=== PATIENT | female | born 1985 | race Caucasian/White ===

== ENCOUNTER 2019-07-03 18:12 | Observation (INO) | payer OTHER ==
[~2019-07-03] VITALS: Ht 160 cm; Wt 148.1 kg
[2019-07-03] MEDS ORDERED: COZAAR25 MG PO (18:31)
[2019-07-03] MEDS ORDERED: WELLBUTRIN SR100 MG PO (18:31)
[2019-07-03] MEDS ORDERED: METFORMIN HCL500 MG PO (18:31)
--- NOTE | 2019-07-04 07:18 | CONS ---
[facility] [address] [place], [place] [address] Signed DATE OF CONSULTATION: 07/04/2019 CHIEF COMPLAINT: Right upper quadrant abdominal pain. HISTORY OF PRESENT ILLNESS: Carli is a 33-year-old obese female, who is the mother of 5 children. She developed epigastric right upper quadrant abdominal pain yesterday associated with nausea. She came to the emergency room for evaluation. In the emergency room, she was tender in the upper abdomen with a normal white count and elevated liver function tests. She has had a tubal ligation and her beta hCG is negative. Ultrasound was performed and she does have mobile stones in the gallbladder. Fortunately, the gallbladder wall does not appear to be thickened and the common bile duct is unremarkable. However, due to her obesity, the quality of the ultrasound is a bit reduced. I have been asked to admit her as a general surgeon on-call. She has been hydrated and received Rocephin and Flagyl overnight along with some Zofran and Phenergan. Overall, she said she is about the same. PAST MEDICAL HISTORY: Type 2 diabetes, hypertension, vitamin D deficiency, and obesity. PAST SURGICAL HISTORY: Bilateral tubal ligation. SOCIAL HISTORY: She does not smoke or drink. She is to [place] at [phone]. They have 5 children, all born vaginally. 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 Her primary care provider is Roma Gottlieb. They prefers the [facility]. FAMILY HISTORY: Mom had diabetes with chronic renal failure. Dad has diabetes with congestive heart failure. REVIEW OF SYSTEMS: She had 10 systems reviewed and there were no new findings. ALLERGIES: Codeine. MEDICATIONS: 1. Metformin 500 mg p.o. daily. 2. Wellbutrin 100 mg p.o. daily. 3. Losartan 25 mg p.o. daily. Electronically Signed By: DOMINIC DALEY MD 07/04/19 0718 PATIENT NAME: CARLI SCHWAB CONSULTATION DATE OF : 83 REPORT #: [id number] PHYSICIAN: DOMINIC DALEY MD PCP: ROMA GOTTLIEB PA-C REPORT IS CONFIDENTIAL AND NOT TO BE RELEASED WITHOUT AUTHORIZATION [facility] [address] [place], [place] [address] Signed PHYSICAL EXAMINATION: VITAL SIGNS: Her blood pressure is 136/74, heart rate is 93, respiratory rate 18, and temperature 97.9. She is 100% on room air. She is 5 feet 3 inches and 148 kg (323 pounds). GENERAL: Carli is a 33-year-old female, who generally appears her stated age. She is lying supine in her hospital bed. She is not jaundiced. She does not appear systemically ill or toxic. LUNGS: Clear to auscultation bilaterally. HEART: Regular rate and rhythm. ABDOMEN: Obese, but soft. She seems to have tenderness in the epigastric region. LABORATORY DATA: Her white blood cell count is 6.2, neutrophils 59, and hemoglobin 13. BUN is 8 and creatinine is 0.64. Her sugar is 153, total bilirubin 1.5, AST 250, ALT 239, alkaline phosphatase 76, albumin is 3.9, and lipase 59. Beta-hCG negative. RADIOGRAPHIC STUDIES: The ultrasound report is reviewed and she has mobile stones, but the gallbladder wall is not thickened. Common bile duct seems unremarkable. Her liver seems to have fat. ASSESSMENT AND PLAN: Carli is a 33-year-old obese female, who presents with symptomatic cholelithiasis and probably early cholecystitis. She also has fatty liver. I reviewed all the above findings with Carli. She understands the location and function of the gallbladder. We have discussed laparoscopic versus open cholecystectomy. She understands expected intraop and postop risk. We also discovered she has an umbilical hernia on physical exam. She said that came after the tubal ligation. We can certainly use that access point for the camera and we will close that primarily when we are done. She understands there is risk including, but not limited to bleeding, infection, scarring, change in contour of the skin, damage to bowel, damage to the main bile duct, incisional hernias, and other unforeseen comorbidities. She has expressed understanding and would like to proceed. We will add her on to our schedule this morning. Dominic Daley MD ALB/MODL /[id number] Electronically Signed By: DOMINIC DALEY MD 07/04/19 0718 PATIENT NAME: CARLI SCHWAB CONSULTATION DATE OF : 83 REPORT #: [id number] PHYSICIAN: DOMINIC DALEY MD PCP: ROMA GOTTLIEB PA-C REPORT IS CONFIDENTIAL AND NOT TO BE RELEASED WITHOUT AUTHORIZATION [address] [address] Signed cc: JESSICA Daniels MD Copies: ROMA GOTTLIEB PA-C, ANDREW L MD ~ Electronically Signed By: DOMINIC DALEY MD 07/04/19 0718 PATIENT NAME: JOSSELINCARLIHER ZAYAS CONSULTATION DATE OF : 83 REPORT #: [id number] PHYSICIAN: DOMINIC DALEY MD PCP: ROMA GOTTLIEB PA-C REPORT IS CONFIDENTIAL AND NOT TO BE RELEASED WITHOUT AUTHORIZATION
--- NOTE | 2019-07-05 07:34 | OR ---
[facility] [address] [place], [place] [address] Signed DATE OF OPERATION: 07/04/2019 SURGEON: Dominic Daley MD PREOPERATIVE DIAGNOSES: 1. Acute cholecystitis and cholelithiasis. 2. Incarcerated umbilical hernia (3 cm). 3. Fatty liver. POSTOPERATIVE DIAGNOSES: 1. Acute cholecystitis with choledocholithiasis (3-4 mm). 2. Incarcerated umbilical hernia (3 cm). 3. Fatty liver. PROCEDURES: 1. Laparoscopic cholecystectomy with intraoperative cholangiogram (prolonged and difficult at 2 hours). 2. Needle liver biopsy. 3. Primary umbilical herniorrhaphy. ESTIMATED BLOOD LOSS: None. FINDINGS: Carli had omentum incarcerated through her umbilical fascial defect, the size of a softball. It had to be divided between Pean clamps and passed off the field in order to reduce the proximal portion of that omentum. We did close that fascial defect later with interrupted [id number] #1 Prolene sutures. She also has significant fatty liver and we took a simple needle biopsy of the right lobe of the liver. In addition, because of her body mass index, we have an additional nurse scrub in. We had introduced the fan retractor through the midline in order to access the neck of the gallbladder in the triangle of Calot. The entire procedure took 2 hours, which is over an hour longer than usual. Consequently, it was prolonged and difficult. INDICATIONS: Carli is a 33-year-old female at 5 feet 3 inches, 323 pounds. She is 148 kg. She has had 5 children, all born vaginally. Yesterday, she was having right upper quadrant and epigastric abdominal pain with significant nausea. She finally came to the emergency room for evaluation. She was not jaundice, but she seemed to be tender in the epigastric area as well as the right upper quadrant. She also had a large incarcerated Electronically Signed By: DOMINIC DALEY MD 07/05/19 0734 PATIENT NAME: CARLI SCHWAB OPERATIVE REPORT DATE OF : 83 REPORT #: [id number] PHYSICIAN: DOMINIC DALEY MD PCP: LARISSA GARCIAS PA-C REPORT IS CONFIDENTIAL AND NOT TO BE RELEASED WITHOUT AUTHORIZATION [facility] [address] [place], [place] [address] Signed umbilical hernia. White count was normal along with the basic metabolic panel. However, the total bilirubin was up to 1.5, AST 250, ALT 239, alkaline phosphatase 76, albumin was 3.9, lipase 59, and beta-hCG was negative. She had an ultrasound performed and it appeared like there were several mobile stones in her gallbladder. The gallbladder wall and the common bile duct did not seem to be particular concerning. Consequently, I was asked to admit her in the middle of night as a general surgeon on-call. She received IV fluids, pain control and Rocephin and Flagyl. In the morning, I met with Carli and we went over this in detail. We also discussed the location and function of the gallbladder. We had discussed laparoscopic versus open cholecystectomy. She understands expected intraop and postop course. There is risk to gallbladder surgery including, but not limited to bleeding, infection, scarring, change in contour of the skin, damage to bowel, damage to main bile duct, incisional hernias and other unforeseen comorbidities. In addition, we talked about her umbilical hernia. They went through that area for the tubal ligation. She has an incarcerated omentum in that area. I reviewed with her the difference between the primary suture repair and a mesh repair of an umbilical hernia. Without mesh, her chance of recurrent hernia runs anywhere from 3% up to 15% even higher given her obesity. Also because of her obesity and the liver function tests, we decided we would more than likely perform a needle biopsy at the time of the surgery if we indeed found evidence of fatty liver as was concerning on the ultrasound. risk to that mainly bleeding. She had expressed understanding and wished to proceed. PROCEDURE NOTE: Carli was taken in the operating room and placed in the supine position under general endotracheal tube anesthesia. She was already on preoperative antibiotics along with subcutaneous heparin. SCDs were in place. She was prepped and draped in the usual sterile fashion. We used her previous infraumbilical curvilinear incision. We opened that sharply with a knife, went down and around the umbilical hernia bluntly and with the cautery. We the hernia sac from the fascial defect. The omentum could not be reduced so we had divided between Pean clamps and 0-Vicryl ties at the level of the umbilicus. That allowed us to reduce the proximal portion of the omentum, however, the distal portion of the omentum was passed off the field. It was at least the size of a softball. We then discovered at least a 3 cm fascial defect. We used a #1 purse-string Prolene suture. We placed our Jason trocar into the defect and we tied that suture down tightly. We added an additional 0-Vicryl suture on the opposite side in order to help us hold the trocar down in place. The abdomen was then insufflated and we placed our two right subcostal and subxiphoid trocar sites under direct visualization. We could immediately see rather significant fatty liver. Her liver was somewhat firm and we were not able to elevate the liver to any significant degree. Consequently, we had to have an additional nurse scrub in and we introduced the fan retractor through the epigastric midline in order to hold the transverse colon and omentum down and out of the way. This then gave us access to her triangle of Calot. It Electronically Signed By: DOMINIC DALEY MD 07/05/19 0734 PATIENT NAME: CARLI SCHWAB OPERATIVE REPORT DATE OF : 83 REPORT #: [id number] PHYSICIAN: DOMINIC DALEY MD PCP: LARISSA GARCIAS PA-C REPORT IS CONFIDENTIAL AND NOT TO BE RELEASED WITHOUT AUTHORIZATION [facility] [address] [place], [place] [address] Signed was carefully dissected free and we placed several clips on the cystic artery and it was divided. We then introduced the intraoperative cholangiocatheter into the cystic duct. The intraoperative cholangiogram was then performed. It looks like she may have a 3 or 4 mm mobile filling defects right at the ampulla of Vater. Hopefully that will pass in due time, but has to be kept in mind. The rest of the common bile duct and the intrahepatic ducts looked unremarkable. We then secured the cystic duct stump with a PDS Endoloop and two clips were placed to mitesh its location. We then slowly and carefully removed the gallbladder from the gallbladder fossa with the help of cautery and placed into an EndoCatch bag. We then passed our needle into the abdomen and took a single core of the right lobe of the liver for pathologic review due to the fatty liver. Hemostasis was achieved with the cautery. The right upper quadrant was irrigated and suctioned out until clear. We then used our laparoscopic suturing device to pass 0-Vicryl suture on the subxiphoid and the mid epigastric trocar sites. These were tied down to close the fascia primarily. All the gas was allowed to escape and all the remaining trocars were removed. The gallbladder was passed off the field. It was opened on the back table for photodocumentation. It appeared there was just a single stone in the gallbladder and maybe one in the distal common bile duct. After this, we used interrupted #1 [id number] Prolene sutures x3 to close the umbilical fascial defect primarily. Local anesthetic was injected into all trocar sites. Each trocar site was irrigated and suctioned out until clear. We brought the umbilical skin back down to the midline fascia with an interrupted 2-0 PDS suture. The dermis of each trocar site was closed with interrupted 3-0 subcuticular Monocryl sutures. The skin edges of the infraumbilical incision closed with a running 5-0 fast absorbing plain gut suture. Dry gauze and tape were then applied to all incisions. Carli was then awakened from her anesthesia, extubated in the OR, and taken to recovery room in stable condition. Dominic Daley MD ALB/MODL /[id number] cc: JESSICA Daniels MD Electronically Signed By: DOMINIC DALEY MD 07/05/19 0734 PATIENT NAME: CARLI SCHWAB OPERATIVE REPORT DATE OF : 83 REPORT #: [id number] PHYSICIAN: DOMINIC DALEY MD PCP: LARISSA GARCIAS PA-C REPORT IS CONFIDENTIAL AND NOT TO BE RELEASED WITHOUT AUTHORIZATION [address] [place] [address] Signed Copies: LARISSA GARCIAS PA-C, ANDREW L MD ~ Electronically Signed By: DOMINIC DALEY MD 07/05/19 0734 PATIENT NAME: CARLI SCHWAB OPERATIVE REPORT DATE OF : 83 REPORT #: [id number] PHYSICIAN: DOMINIC DALEY MD PCP: LARISSA GARCIAS PA-C REPORT IS CONFIDENTIAL AND NOT TO BE RELEASED WITHOUT AUTHORIZATION
[2019-07-05] MEDS ORDERED: BUPROPION HCL150 M2 PO (08:59)
[2019-07-05] MEDS ORDERED: LOSARTAN POTASS50 MG PO (09:00)
[2019-07-05] MEDS ORDERED: VITAMIN D21250 MCG PO (09:01)
[2019-07-05] MEDS ORDERED: NORCO 5-325 TA1 EACH PO (09:45)
[2019-07-05] MEDS ORDERED: DOXYCYCLINE HY100 MG PO (09:46)
[2019-07-05] MEDS ORDERED: IBUPROFEN600 MG PO (09:47)
--- NOTE | 2019-07-05 10:04 | DS ---
[facility] [address] [place], [place] [address] Signed ADMISSION DATE: 07/03/2019 DISCHARGE DATE: 07/05/2019 FINAL DIAGNOSES: 1. Acute cholecystitis with choledocholithiasis. 2. Umbilical hernia. 3. Fatty liver. PROCEDURES: 1. Laparoscopic cholecystectomy with intraoperative cholangiogram. 2. Primary umbilical herniorrhaphy. 3. Needle liver biopsy. HISTORY OF PRESENT ILLNESS: Carli is a 33-year-old obese female at 5 foot 3 inches, 323 pounds. Consequently, she is 148 kg. She was having trouble with right upper quadrant abdominal pain and nausea for a day. She came to emergency room for evaluation. She was not jaundiced and was generally not systemically ill or toxic. She clearly had an incarcerated umbilical hernia on physical exam. She has had a prior tubal ligation with the camera placed through this area. White count was normal. Total bilirubin was up a little at 1.5 with elevated AST at 250, ALT 239, alkaline phosphatase 76 with a lipase of 59, albumin good at 3.9, and her beta-hCG was negative. She was admitted as above and started on Rocephin and Flagyl overnight. HOSPITAL COURSE: I met with Carli in the morning and we reviewed the above findings in detail. We discussed the location. We had taken her to the operating room later that morning for her laparoscopic cholecystectomy with intraoperative cholangiogram. She has a small filling defect in the distal common bile duct. Probably 3 or 4 mm in diameter. Consequently, it may pass on its own. We did get contrast to go around and into the duodenum. In addition, the following morning, her total bilirubin had come down to 0.8. Liver function tests were also improving. Lipase also down at 30. With hydration, she also had a decrease in her hemoglobin down to 11.5, so she is mildly anemic. Her urine culture came back with strep, so we are going to start her on doxycycline 100 mg p.o. b.i.d. for five days. In addition, she had a rather large umbilical hernia. The amount of omentum we resected was the size of a softball. Consequently, the umbilical skin was quite thin. This morning it is quite dusky and I suspect she is going to lose some of that skin at least from the 3 o'clock to the 9 o'clock position. However, we could certainly open that or debride that in the office and we will pack that. If that occurs, and that will heal in secondarily anywhere from four weeks to eight weeks. Otherwise the other incisions are healing quite nicely. Electronically Signed By: DOMINIC DALEY MD 07/05/19 1004 PATIENT NAME: CARLI SCHWAB DISCHARGE SUMMARY DATE OF : 83 REPORT #: [id number] PHYSICIAN: DOMINIC DALEY MD PCP: ROMA GARCIAS PA-C REPORT IS CONFIDENTIAL AND NOT TO BE RELEASED WITHOUT AUTHORIZATION [facility] [address] [place] [address] Signed DISCHARGE PLANS AND MEDICATIONS: I reviewed all this with Carli in detail this morning. Including the umbilicus and the small stone in the distal common bile duct. She told me she is from [place] and is very familiar with [place]. She is in need of an endoscopic ultrasound and possible ERCP. Consequently, we will send a consult down to the [facility] with Fer and we will look forward to their input. We are going to be sending her home today with the doxycycline 100 mg p.o. b.i.d. for five days for the urinary tract infection. We will give her some hydrocodone for her postoperative pain. She can shower and bathe as usual. She will leave the incisions open to air. She should not lift over 25 pounds for a month, 50 pounds 2nd month and after that no restrictions. I will have her back in my office in about 5-7 days for followup. She has expressed understanding and agrees above plan. Dominic Daley MD ALB/MODL /[id number] cc: MD Roma Koenig PA-C Copies: DOMINIC DALEY MD, CHLOE K PA-C ~ Electronically Signed By: DOMINIC DALEY MD 07/05/19 1004 PATIENT NAME: CARLI SCHWAB DISCHARGE SUMMARY DATE OF : 83 REPORT #: [id number] PHYSICIAN: DOMINIC DALEY MD PCP: ROMA GARCIAS PA-C REPORT IS CONFIDENTIAL AND NOT TO BE RELEASED WITHOUT AUTHORIZATION
--- NOTE | 2019-07-09 17:39 | PATH ---
[facility] [address] [place], [place] [address] Signed SPECIMEN(S): A UMBILICAL HERNIA SAC OMENTUM SPECIMEN(S): B FATTY LIVER SPECIMEN(S): C GALLBLADDER SPECIMEN SOURCE: A. UMBILICAL HERNIA SAC OMENTUM B. FATTY LIVER C. GALLBLADDER CLINICAL HISTORY: A) Umbilical hernia sac and omentum. B) Liver biopsy of fatty liver. C) Acute cholecystitis. FINAL PATHOLOGIC DIAGNOSIS: A. Umbilical hernia sac and omentum, excision: - Mesothelial-line fibrovascular connective tissue, consistent with hernia sac. - Mature fibroadipose tissue, consistent with omentum. B. Liver, biopsy: - Mildly active steatohepatitis with pericellular fibrosis. - See Comment. C. Gallbladder, cholecystectomy: - Chronic cholecystitis with cholesterolosis. - Cholelithiasis. COMMENT: Sections of the liver biopsy demonstrate macrovesicular steatosis (75%, predominantly large droplet), portal mixed inflammation with lymphocytes and neutrophils, and mild interface change. Lobular inflammation and rare Shari's hyaline is seen. The bile ducts are normal in number and show reactive changes. Pericellular fibrosis is seen with trichrome and reticulin stains, suggesting a chronic inflammatory component. There is no evidence of jyjvi-7-xjqbbtfulds deficiency on PAS-D stain. There is no abnormal iron accumulation with iron stain. The small sample size and lack of portal tracts prevents further evaluation. The differential diagnosis includes non-alocholic steatohepatitis (VERMA) and alcohol-induced steatohepatitis. Correlation with clinical findings is necessary. As part of [employer] Quality Improvement Program, this case was reviewed by another member of our pathology staff. PATIENT NAME: MITCHELL SCHWAB PATHOLOGY DATE OF : 83 REPORT #: [id number] PHYSICIAN: RAUL PLATA PCP: LARISSA GARCIAS PA-C REPORT IS CONFIDENTIAL AND NOT TO BE RELEASED WITHOUT AUTHORIZATION [facility] [address] [place], [place] [address] Signed NAL:[id number] MICROSCOPIC EXAMINATION: Histologic sections of all submitted blocks are examined by light microscopy. Special stains (with appropriately staining controls) for PAS/D, trichrome, reticulin, and iron were performed to evaluate the liver biopsy. These findings, together with the gross examination, support the pathologic diagnosis. GROSS DESCRIPTION: Three specimens are received in three containers, labeled "HL." A. The specimen, labeled "HL," and designated on the requisition "abdominal hernia sac and omentum," is received in formalin and consists of fibromembranous, pink-red, congested tissue with attached yellow-velazquez, lobulated fibroadipose tissue. The specimen measures 11.2 x 8.9 x 4.7 cm. Sectioning through the specimen is unremarkable. Photovoltaic Solar Cell [employer]er sections are submitted in cassettes (A1-A2). B. The specimen, labeled "HL," and designated on the requisition "liver biopsy of fatty liver," is received in formalin and consists of two pink-velazquez needle core tissue fragments that range in size from 0.5 to 0.7 cm in length and up to 0.1 cm in diameter. Specimen is inked black. Specimen is entirely submitted in cassette (B1). C. The specimen, labeled "HL, gallbladder," is received in formalin and consists of: Specimen: Previously opened gallbladder. Dimensions: 7.0 cm in length and 4.2 cm in inner diameter. Serosa: Violaceous and smooth. Cystic Duct: Obstructed with two black gallstones that measure 0.6 and 0.5 cm in greatest dimension. Calculi: The previously described gallstones are the only gallstones within the container and within the gallbladder. Mucosa: Green and velvety with yellow flecking. Wall thickness: 0.4 cm. Lymph node: No pericystic lymph nodes are grossly identified. Additional: None. Photovolta[employer] Solar Cell Designer sections are submitted in cassette (A1). JS (under the direct supervision of a pathologist) The Gross Description was prepared using a voice recognition system. The report was reviewed for accuracy; however, sound-alike word errors, addition and/or deletions may occur. If there is any question about this report, please contact Client Services. PATIENT NAME: MITCHELL SCHWAB PATHOLOGY DATE OF : 83 REPORT #: [id number] PHYSICIAN: RALU PLATA PCP: LARISSA GARCIAS PA-C REPORT IS CONFIDENTIAL AND NOT TO BE RELEASED WITHOUT AUTHORIZATION [facility] [address] [place] [address] Signed PERFORMING LABORATORY: The technical component was performed by [facility] [employer] [facility], [address] [place] [address] (Radiology Scheduler: Tamy Alex MD; CLIA# [id number]). Professional interpretation was performed by [facility] [facility], [facility], [address] [address] (IA# [id number]). Diagnostician: Katiana Fisher MD Pathologist Electronically Signed 07/09/2019 Copies: ~ PATIENT NAME: MITCHELL SCHWAB PATHOLOGY DATE OF : 83 REPORT #: [id number] PHYSICIAN: RAUL PATHOLOGY PCP: LARISSA GARCIAS PA-C REPORT IS CONFIDENTIAL AND NOT TO BE RELEASED WITHOUT AUTHORIZATION
== END 2019-07-05 10:25 | disposition home or self-care (01) ==
LOC: ED 18:12 → MS 18:15 → ED 20:37 → MS 07-05 10:25
PROVIDERS: ADMIT Colon & Rectal Surgery
PROC: 0FT44ZZ Resection of Gallbladder, Percutaneous Endoscopic Approach (ICD-10-PCS; principal; 2019-07-03)
PROC: BF13YZZ Fluoroscopy of Gallbladder and Bile Ducts using Other Contrast (ICD-10-PCS; 2019-07-03)
PROC: 0FB03ZX Excision of Liver, Percutaneous Approach, Diagnostic (ICD-10-PCS; 2019-07-03)
DX: K80.66 Calculus of gallbladder and bile duct with acute and chronic cholecystitis without obstruction (principal); K42.0 Umbilical hernia with obstruction, without gangrene; K76.0 Fatty (change of) liver, not elsewhere classified; K74.0 Hepatic fibrosis; E11.9 Type 2 diabetes mellitus without complications; I10 Essential (primary) hypertension; E55.9 Vitamin D deficiency, unspecified; E66.9 Obesity, unspecified; Z79.84 Long term (current) use of oral hypoglycemic drugs; Z79.899 Other long term (current) drug therapy; Z88.5 Allergy status to narcotic agent; Z68.43 Body mass index [BMI] 50.0-59.9, adult
CPT/HCPCS: 00790; 36415; 74300; 76705; 80053; 81001; 83690; 84703; 85025; 87088; 87147; 88304; 88307; 88313; 96361; 96372; 96374; 96375; 96376; 99285-25; G0378; J0696; J1100; J1170; J1650; J1885; J2270; J2405; J2550; J2704; J3010; J7030; Q9967

== ENCOUNTER 2019-08-02 00:18 | Emergency (ER) | payer OTHER ==
[~2019-08-02] VITALS: Ht 160 cm; Wt 148.1 kg
[~2019-08-02 00:18] MED LIST: BUPROPION HCL150 M2 PO; COZAAR25 MG PO; DOXYCYCLINE HY100 MG PO; IBUPROFEN600 MG PO; LOSARTAN POTASS50 MG PO; METFORMIN HCL500 MG PO; NORCO 5-325 TA1 EACH PO; VITAMIN D21250 MCG PO; WELLBUTRIN SR100 MG PO
--- OUTSIDE RECORDS SUMMARY | 2019-08-02 00:20 | XMS ---
PreManage Notification: MITCHELL SCHWAB Security Calculation Clerk Events No recent Security Events currently on file CRITERIA MET - [facility] - 2 Visits in 30 Days CARE PROVIDERS There are no care providers on record at this time. Deepak has no Care Guidelines for this patient. [facility] MO.) [facility] NOTE: Visits indicate total known visits. [facility] [place] (12 MO.) 08/02/2019 00:19 [facility] 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
== END 2019-08-02 01:17 | disposition home or self-care (01) ==
LOC: ED 00:18
DX: K91.872 Postprocedural seroma of a digestive system organ or structure following a digestive system procedure (principal); E11.9 Type 2 diabetes mellitus without complications; I10 Essential (primary) hypertension; Z87.891 Personal history of nicotine dependence; Z88.5 Allergy status to narcotic agent; Z79.899 Other long term (current) drug therapy
CPT/HCPCS: 99283

== ENCOUNTER 2019-10-05 17:29 | Emergency (ER) | payer OTHER ==
[~2019-10-05] VITALS: Ht 160 cm; Wt 145.2 kg
[2019-10-05] MEDS ORDERED: PERCOCET 5-3251 EACH PO (18:45)
[2019-10-05] MEDS ORDERED: CANE1 EACH MISC (18:45)
== END 2019-10-05 18:56 | disposition home or self-care (01) ==
LOC: ED 17:29
DX: S93.05XA Dislocation of left ankle joint, initial encounter (principal); I10 Essential (primary) hypertension; E11.9 Type 2 diabetes mellitus without complications; Z88.5 Allergy status to narcotic agent; Z79.899 Other long term (current) drug therapy; Z79.84 Long term (current) use of oral hypoglycemic drugs; X58.XXXA Exposure to other specified factors, initial encounter
CPT/HCPCS: 73610; 99283-25

== ENCOUNTER 2020-11-04 07:33 | Emergency (ER) | payer OTHER ==
[~2020-11-04] VITALS: Ht 160 cm; Wt 145.2 kg
[~2020-11-04 07:33] MED LIST changes: +CANE1 EACH MISC; +PERCOCET 5-3251 EACH PO
[2020-11-04] MEDS ORDERED: PERCOCET 5-3251 EACH PO (10:30)
[2020-11-04] MEDS ORDERED: LIDODERM1 EACH TOP (10:30)
[2020-11-04] MEDS ORDERED: PREDNISONE20 MG PO (10:35)
== END 2020-11-04 10:50 | disposition home or self-care (01) ==
LOC: ED 07:33
DX: M54.9 Dorsalgia, unspecified (principal); E11.9 Type 2 diabetes mellitus without complications; I10 Essential (primary) hypertension; Z87.891 Personal history of nicotine dependence; Z88.5 Allergy status to narcotic agent; Z79.84 Long term (current) use of oral hypoglycemic drugs; Z79.899 Other long term (current) drug therapy
CPT/HCPCS: 74176; 80053; 81001; 83690; 84703; 85025; 96374; 96375; 99284-25; J1885; J2270; J2405

== ENCOUNTER 2021-07-24 14:46 | Emergency (ER) | payer OTHER ==
[~2021-07-24] VITALS: Ht 160 cm; Wt 140.6 kg
[~2021-07-24 14:46] MED LIST changes: +LIDODERM1 EACH TOP; +PREDNISONE20 MG PO
--- OUTSIDE RECORDS SUMMARY | 2021-07-24 14:48 | XMS ---
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 EAnselmo VISIT COUNT (12 MO.) 2 RICARDO Gutierrez TOTAL 2 NOTE: Visits indicate total known visits. 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
[2021-07-24] MEDS ORDERED: LOSARTAN POTASS50 MG PO (14:59)
[2021-07-24] MEDS ORDERED: HYDROCODON-ACE1 EA10 PO (14:59)
[2021-07-24] MEDS ORDERED: METFORMIN HCL500 MG PO (15:00)
[2021-07-24] MEDS ORDERED: SERTRALINE HCL25 MG PO (15:00)
== END 2021-07-24 16:28 | disposition home or self-care (01) ==
LOC: ED 14:46
DX: S93.401A Sprain of unspecified ligament of right ankle, initial encounter (principal); E11.9 Type 2 diabetes mellitus without complications; I10 Essential (primary) hypertension; Z87.891 Personal history of nicotine dependence; Z88.5 Allergy status to narcotic agent; Z79.899 Other long term (current) drug therapy; Z79.84 Long term (current) use of oral hypoglycemic drugs; X50.1XXA Overexertion from prolonged static or awkward postures, initial encounter
CPT/HCPCS: 73590; 73610; 99283-25; A9270